=== PATIENT | male | born 1990 | race Caucasian/White ===

== ENCOUNTER → 2024-04-02 | Outpatient (CLI) | payer BC ==
--- NOTE | 2024-04-03 06:27 | XR ---
EXAMINATION TYPE: XR lumbar spine 2 or 3V DATE OF EXAM: 04/02/2024 4:15 PM COMPARISON: None. CLINICAL INDICATION: Male, 34 years old with history of M51.36 Other disc degeneration, pain TECHNIQUE: 3 view(s) obtained. FINDINGS: There are 5 lumbar-type vertebral bodies. Pedicles are intact. There is spina bifida occulta of L5. N arrowing of the L5-S1 disc height is present. Remaining disc heights are preserved. Vertebral body he ights are preserved. IMPRESSION: 1. No acute osseous abnormality lumbar spine 2. Mild degenerative disc change L5-S1. [facility], , 04/03/2024 6:25 AM
== END | disposition home or self-care (01) ==
LOC: RADXRMAIN 15:40
PROVIDERS: ATTEND Family Medicine
DX: M51.370 Other intervertebral disc degeneration, lumbosacral region with discogenic back pain only (principal)
CPT/HCPCS: 72100